=== PATIENT | female | born 1995 | race Caucasian/White ===

== ENCOUNTER 2020-01-06 05:42 | Observation (INO) ==
[2020-01-06] MEDS ORDERED: Ondansetron 4 MG/2 ML VIAL IVP ONE ×2 (06:11→12:30)
[2020-01-06] MEDS ORDERED: 0.9 % Sodium Chloride 1,000 ML IVC ONE (06:11)
[2020-01-06] MEDS ORDERED: *HR* FentaNYL (PF) 100 MCG/2 ML VIAL IVP ONE ×2 (06:17→07:52)
[2020-01-06] MEDS ORDERED: Isovue-370 500 ML BOTTLE IVP ONE (06:18)
[2020-01-06 06:34] LABS: Bilirubin,Urine Negative (Negative); Blood,Urine Trace (Negative); Clarity,Urine Clear (Clear); Color,Urine Yellow (Yellow); Glucose,Urine (UA) Normal (Normal); Ketones,Urine Negative (Negative); Leukocyte Esterase,Urine Negative (Negative); Nitrite,Urine Negative (Negative); Protein,Urine Negative (Neg-Trace); Specific Gravity,Urine 1.024 (1.010-1.025); Urobilinogen,Urine Normal (Normal)
[2020-01-06 06:36] LABS: Bacteria,Urine None Seen per hpf (None-Few); Hyaline Casts,Urine None Seen per lpf (None-Few); Squamous Epithelial Cell,Urine Moderate per lpf (None-Few); WBC,Urine 0-3 per hpf (0-3)
[2020-01-06 06:37] LABS: Immature Granulocytes % 0.5 % (0-4); Mean Corpuscular Volume 58.7 fL (83.0-100.0)
[2020-01-06 06:39] LABS: Basophils % 0.2 %; Immature Platelets 4.7 % (1.1-6.1); Lymphocytes # 1.8 K/mcL (0.6-4.6); Lymphocytes % 12.3 %; Mean Corpuscular HGB Conc 24.6 g/dL (31.6-35.5); Mean Corpuscular Hemoglobin 14.4 pg (28.0-33.3); Monocytes # 1.1 K/mcL (0.0-1.3); Monocytes % 7.2 %; Neutrophils # 11.5 K/mcL (1.6-8.9); Platelet Count 306 K/mcL (140-400); Red Blood Count 4.09 M/mcL (3.82-4.97); Red Cell Distribution Width 22.7 % (11.5-14.5); Segmented Neutrophils % 78.8 %; White Blood Count 14.6 K/mcL (4.3-11.1)
[2020-01-06 06:41] LABS: Eosinophils # 0.2 K/mcL (0.0-0.6)
[2020-01-06 06:44] LABS: Hemoglobin 5.9 g/dL (11.5-15.4)
[2020-01-06 07:00] LABS: Alanine Aminotransferase 15 Units/L (7-52); Albumin 4.2 g/dL (3.5-5.7); Albumin/Globulin Ratio 1.4 (1.1-2.2); Alkaline Phosphatase 59 Units/L (34-104); Aspartate Amino Transferase 20 Units/L (13-39); BUN/Creatinine Ratio 12 (6-26); Bilirubin,Direct 0.1 mg/dL (0.0-0.2); Bilirubin,Indirect 0.4 mg/dL (0.0-1.0); Bilirubin,Total 0.5 mg/dL (0.3-1.0); Blood Urea Nitrogen 7 mg/dL (6-20); Carbon Dioxide 21 mEq/L (23-29); Chloride 106 mEq/L (98-107); Globulin 2.9 g/dL (2.4-3.5); Glucose 102 mg/dL (70-105); Lipase 28 Units/L (11-82); Osmolality,Calculated 280 (280-300); Potassium 3.3 mEq/L (3.5-5.1); Sodium 136 mEq/L (136-145); Total Protein 7.1 g/dL (6.4-8.9); eGFR For African Americans > 60 (> 60); eGFR For Non-African Americans > 60 (> 60)
[2020-01-06 07:12] LABS: Platelet Estimate Normal (Normal)
[2020-01-06 07:13] LABS: Anisocytosis 1+ (Not Present); Hypochromasia Present (Not Present)
[2020-01-06 07:27] LABS: Hematocrit 22.6 % (35.3-44.9); Immature Platelets 4.9 % (1.1-6.1); Mean Corpuscular HGB Conc 24.8 g/dL (31.6-35.5); Mean Corpuscular Hemoglobin 14.5 pg (28.0-33.3); Mean Corpuscular Volume 58.7 fL (83.0-100.0); Platelet Count 294 K/mcL (140-400); Red Blood Count 3.85 M/mcL (3.82-4.97); Red Cell Distribution Width 22.5 % (11.5-14.5); White Blood Count 14.2 K/mcL (4.3-11.1)
[2020-01-06] MEDS ORDERED: Piperacillin/Tazobactam 3.375 GM in 0.9 % Sodium Chloride Mini Bag 100 ML IVPB ONE (07:42)
[2020-01-06 07:44] LABS: Hemoglobin 5.6 g/dL (11.5-15.4)
[2020-01-06] MEDS ORDERED: 0.9 % Sodium Chloride 1,000 ML IVC SCH (08:15)
[2020-01-06] MEDS ORDERED: *HR* FentaNYL (PF) 100 MCG/2 ML VIAL ONE (08:19)
[2020-01-06] MEDS ORDERED: *HR* HYDROMORPHONE 2 MG/ML VIAL ONE (08:19)
[2020-01-06] MEDS ORDERED: *HR* Propofol 200 MG/20 ML VIAL IVP ONE (08:19)
[2020-01-06] MEDS ORDERED: *HR* Midazolam HCl 2 MG/2 ML VIAL ONE (08:19)
[2020-01-06] MEDS ORDERED: Ondansetron 4 MG/2 ML VIAL ONE (08:20)
[2020-01-06] MEDS ORDERED: Lidocaine -MPF 2% 2 ML VIAL ONE ×2 (08:20→10:04)
[2020-01-06] MEDS ORDERED: *HR* Rocuronium Bromide 50 MG/5 ML VIAL ONE (08:20)
[2020-01-06] MEDS ORDERED: Dexamethasone 4 MG/ML VIAL ONE (08:20)
[2020-01-06] MEDS ORDERED: *HR* Succinylcholine 200 MG/10 ML VIAL IVP ONE (08:20)
[2020-01-06] MEDS ORDERED: 0.9 % Sodium Chloride 250 ML IVC SCH (09:00)
[2020-01-06] MEDS ORDERED: Albumin Human 5% 25.0 GM/500 ML IV.SOLN ONE (09:33)
[2020-01-06] MEDS ORDERED: Acetaminophen IV 1,000 MG/100 ML INFUS..BTL ONE (09:33)
[2020-01-06] MEDS ORDERED: Famotidine 20 MG/2 ML VIAL ONE (09:34)
[2020-01-06] MEDS ORDERED: *HR* FentaNYL (PF) 100 MCG/2 ML VIAL IVP PRN (09:37)
[2020-01-06] MEDS ORDERED: Ketorolac 30 MG/ML VIAL ONE (12:27)
[2020-01-06] MEDS ORDERED: *HR* Promethazine 25 MG/ML VIAL IVP PRN (12:30)
[2020-01-06] MEDS ORDERED: *HR* HYDROmorphone PF 0.5 MG/0.5 ML SYRINGE IVP PRN (12:30)
[2020-01-06] MEDS ORDERED: *HR* OxyCODONE Immed Rel 5 MG TABLET PO PRN (12:30)
[2020-01-06] MEDS ORDERED: traZODone 50 MG TABLET PO PRN (13:14)
[2020-01-06] MEDS ORDERED: Piperacillin/Tazobactam 3.375 GM in 0.9 % Sodium Chloride Mini Bag 100 ML IVPB SCH (16:00)
[2020-01-06] MEDS: Piperacillin/Tazobactam 3.375 GM in 0.9 % Sodium Chloride Mini Bag 100 ML IVPB SCH (16:41)
[2020-01-06] MEDS: *HR* OxyCODONE/APAP 5/325 TABLET PO PRN ×2 (16:44→21:11)
[2020-01-06] MEDS: Ondansetron 4 MG/2 ML VIAL IVP PRN (16:44)
[2020-01-06] MEDS: Ketorolac 15 MG/ML VIAL IVP SCH ×2 (17:04→23:02)
[2020-01-07] MEDS: *HR* OxyCODONE/APAP 5/325 TABLET PO PRN ×3 (04:34→13:01)
[2020-01-07] MEDS: Ketorolac 15 MG/ML VIAL IVP SCH ×2 (06:38→12:00)
[2020-01-07 06:51] VITALS: BP 123/74
[2020-01-07] MEDS: Piperacillin/Tazobactam 3.375 GM in 0.9 % Sodium Chloride Mini Bag 100 ML IVPB SCH ×2 (07:44)
[2020-01-07] MEDS: Ondansetron 4 MG/2 ML VIAL IVP PRN (08:57)
[2020-01-07] MEDS ORDERED: FLUoxetine HCl 10 MG CAPSULE PO SCH (09:00)
[2020-01-07] MEDS ORDERED: Venlafaxine XR (24 HR) 150 MG CAP.ER.24H PO SCH (09:00)
[2020-01-07 12:59] LABS: Red Cell Distribution Width 24.6 % (11.5-14.5)
[2020-01-07 13:01] LABS: % Iron Saturation 3 % (15-50); Hematocrit 25.8 % (35.3-44.9); Hemoglobin 6.5 g/dL (11.5-15.4); Immature Platelets 5.5 % (1.1-6.1); Iron 15 mcg/dL (50-170); Mean Corpuscular HGB Conc 25.2 g/dL (31.6-35.5); Mean Corpuscular Hemoglobin 15.7 pg (28.0-33.3); Mean Corpuscular Volume 62.5 fL (83.0-100.0); Platelet Count 321 K/mcL (140-400); Red Blood Count 4.13 M/mcL (3.82-4.97); Transferrin 418 mg/dL (203-362); White Blood Count 11.9 K/mcL (4.3-11.1)
== END 2020-01-07 13:07 | disposition home or self-care (01) ==
LOC: 3ANU 05:42 → EMEROOARM 05:42 → 3ANU 09:05
PROVIDERS: ADMIT Surgery; ATTEND Surgery

== ENCOUNTER → 2021-02-14 16:05 | Observation (INO) ==
[2021-02-14 14:29] LABS: Bacteria,Urine Few per hpf (None-Few); Bilirubin,Urine Negative (Negative); Blood,Urine Negative (Negative); Calcium Oxalate Crystals,Urine Present per hpf; Clarity,Urine Turbid (Clear); Color,Urine Yellow (Yellow); Glucose,Urine (UA) Normal (Normal); Ketones,Urine Negative (Negative); Leukocyte Esterase,Urine Trace (Negative); Mucus,Urine Few per lpf (None-Few); Nitrite,Urine Negative (Negative); Protein,Urine Trace mg/dL (Neg-Trace); RBC,Urine 0-3 per hpf (0-3); Specific Gravity,Urine 1.015 (1.010-1.025); Squamous Epithelial Cell,Urine Moderate per hpf (None-Few); Urobilinogen,Urine Normal (Normal); WBC,Urine 0-3 per hpf (0-3)
[2021-02-14 16:08] LABS: Basophils % 0.2 %; Eosinophils # 0.2 K/mcL (0.0-0.6); Eosinophils % 1.7 %; Hematocrit 33.6 % (35.3-44.9); Hemoglobin 10.6 g/dL (11.5-15.4); Immature Granulocytes % 0.7 % (0-4); Lymphocytes % 22.7 %; Mean Corpuscular HGB Conc 31.5 g/dL (31.6-35.5); Mean Corpuscular Hemoglobin 28.9 pg (28.0-33.3); Mean Corpuscular Volume 91.6 fL (83.0-100.0); Mean Platelet Volume 10.4 fL (9.4-12.4); Monocytes # 0.5 K/mcL (0.0-1.3); Monocytes % 6.2 %; Platelet Count 160 K/mcL (140-400); Red Blood Count 3.67 M/mcL (3.82-4.97); Red Cell Distribution Width 12.7 % (11.5-14.5); Segmented Neutrophils % 68.5 %; White Blood Count 8.7 K/mcL (4.3-11.1)
[2021-02-14 16:29] LABS: % Iron Saturation 16 % (15-50); Calcium 8.2 mg/dL (8.6-10.3); Iron 78 mcg/dL (50-170); Transferrin 346 mg/dL (203-362)
[2021-02-14 16:47] LABS: Ferritin < 8 ng/mL (10-120)
[2021-02-14 16:58] LABS: Folate > 22.3 ng/mL (3.0-16.0); Vitamin B12 213 pg/mL (250-1100); Vitamin D 25 Hydroxy 30 ng/mL (30-80)
== END | disposition home or self-care (01) ==
LOC: 1NENULAB
PROVIDERS: ADMIT Registered Nurse; ATTEND Registered Nurse

== ENCOUNTER 2021-04-08 07:06 | Inpatient (IN) ==
[~2021-04-08 07:06] MED LIST: *HR* FentaNYL (PF) 100 MCG/2 ML VIAL ONE; *HR* Midazolam HCl 2 MG/2 ML VIAL ONE; *HR* Morphine Sulfate/PF 10 MG/10 ML AMPUL ONE; *HR* Phenylephrine 10 MG/ML VIAL ONE; Acetaminophen IV 1,000 MG/100 ML BAG IVPB ONE; Ondansetron 4 MG/2 ML VIAL ONE
[2021-04-08] MEDS ORDERED: Famotidine 20 MG/2 ML VIAL IVP PRN (07:27)
[2021-04-08] MEDS ORDERED: Metoclopramide 10 MG/2 ML VIAL IVP PRN ×2 (07:27→13:39)
[2021-04-08] MEDS ORDERED: Naloxone 0.4 MG/ML INJ IVP PRN ×3 (07:27→13:39)
[2021-04-08] MEDS ORDERED: CeFAZolin 2,000MG/50ML DUPLEX 2,000 MG/50 ML BAG IVPB ONE (07:29)
[2021-04-08] MEDS ORDERED: Ringers Solution, Lactated 1,000 ML IVC SCH (07:30)
[2021-04-08 08:19] LABS: Basophils % 0.5 %; Eosinophils # 0.1 K/mcL (0.0-0.6); Hematocrit 38.1 % (35.3-44.9); Immature Granulocytes % 0.5 % (0-4); Immature Platelets 7.3 % (1.1-6.1); Lymphocytes # 1.8 K/mcL (0.6-4.6); Lymphocytes % 21.5 %; Mean Corpuscular HGB Conc 31.5 g/dL (31.6-35.5); Mean Corpuscular Hemoglobin 27.5 pg (28.0-33.3); Mean Corpuscular Volume 87.2 fL (83.0-100.0); Mean Platelet Volume 12.3 fL (9.4-12.4); Monocytes # 0.6 K/mcL (0.0-1.3); Monocytes % 7.3 %; Neutrophils # 5.7 K/mcL (1.6-8.9); Platelet Count 162 K/mcL (140-400); Red Blood Count 4.37 M/mcL (3.82-4.97); Red Cell Distribution Width 13.4 % (11.5-14.5); Segmented Neutrophils % 69.2 %; White Blood Count 8.2 K/mcL (4.3-11.1)
[2021-04-08 08:20] LABS: Amphetamine Screen,Urine Negative ng/mL (Cutoff=1000); Barbiturate Screen,Urine Negative ng/mL (Cutoff=200); Benzodiazepines Screen,Urine Negative ng/mL (Cutoff=200); Cannabinoid Screen,Urine Negative ng/mL (Cutoff = 50); Cocaine Screen,Urine Negative ng/mL (Cutoff= 300); Opiate Screen,Urine Negative ng/mL (Cutoff=300); Phencyclidine Screen,Urine Negative ng/mL (Cutoff=25)
[2021-04-08 08:40] LABS: Platelet Estimate Normal (Normal)
[2021-04-08] MEDS ORDERED: Oxytocin 20 units/ LR 1000 mL 20 UNIT/1,000 ML BAG IVC ONE ×2 (09:23→13:19)
[2021-04-08] MEDS ORDERED: Metoclopramide 10 MG/2 ML VIAL ONE (09:31)
[2021-04-08] MEDS ORDERED: Famotidine 20 MG/2 ML VIAL ONE (09:31)
[2021-04-08] MEDS ORDERED: Ondansetron 4 MG/2 ML VIAL IVP PRN ×2 (10:32→13:39)
[2021-04-08] MEDS ORDERED: Promethazine 6.25 MG in Water for inj. (sterile) 20 ML IVPB PRN (10:32)
[2021-04-08] MEDS ORDERED: *HR* Meperidine 25 MG/ML SYRINGE IVP PRN (10:32)
[2021-04-08] MEDS ORDERED: *HR* FentaNYL (PF) 100 MCG/2 ML VIAL IVP PRN (10:32)
[2021-04-08] MEDS ORDERED: 0.9 % Sodium Chloride 1,000 ML IVC SCH (13:39)
[2021-04-08] MEDS: Ibuprofen 600 MG TABLET PO SCH ×2 (14:33→20:43)
[2021-04-08] MEDS: Oxytocin 20 units/ LR 1000 mL 20 UNIT/1,000 ML BAG IVC SCH ×2 (14:36→20:43)
[2021-04-08] MEDS: Acetaminophen 325 MG TABLET PO SCH ×2 (16:43→23:46)
[2021-04-08] MEDS: *HR* OxyCODONE Immed Rel 5 MG TABLET PO PRN ×2 (18:14→23:46)
[2021-04-08] MEDS ORDERED: Lanolin 7 G OINT...G. TP PRN (20:25)
[2021-04-08] MEDS: Simethicone 80 MG TAB.CHEW PO PRN (20:43)
[2021-04-09 04:56] LABS: Basophils % 0.3 %; Eosinophils # 0.2 K/mcL (0.0-0.6); Eosinophils % 1.8 %; Hematocrit 29.8 % (35.3-44.9); Hemoglobin 9.3 g/dL (11.5-15.4); Immature Granulocytes % 0.3 % (0-4); Lymphocytes # 2.1 K/mcL (0.6-4.6); Lymphocytes % 22.2 %; Mean Corpuscular HGB Conc 31.2 g/dL (31.6-35.5); Mean Corpuscular Hemoglobin 27.6 pg (28.0-33.3); Mean Corpuscular Volume 88.4 fL (83.0-100.0); Mean Platelet Volume 10.9 fL (9.4-12.4); Monocytes # 0.6 K/mcL (0.0-1.3); Monocytes % 6.1 %; Neutrophils # 6.7 K/mcL (1.6-8.9); Platelet Count 162 K/mcL (140-400); Red Blood Count 3.37 M/mcL (3.82-4.97); Red Cell Distribution Width 13.6 % (11.5-14.5); Segmented Neutrophils % 69.3 %; White Blood Count 9.6 K/mcL (4.3-11.1)
[2021-04-09] MEDS: Ibuprofen 600 MG TABLET PO SCH ×3 (04:57→22:42)
[2021-04-09] MEDS: *HR* OxyCODONE Immed Rel 5 MG TABLET PO PRN ×2 (04:57→10:33)
[2021-04-09] MEDS: Prenatal Vit/FA 1 EACH TABLET PO SCH (07:56)
[2021-04-09] MEDS: Simethicone 80 MG TAB.CHEW PO PRN ×2 (07:56→19:54)
[2021-04-09] MEDS: Acetaminophen 325 MG TABLET PO SCH ×2 (07:56→19:53)
[2021-04-09] MEDS ORDERED: NON-FORMULARY MEDICATION 1 EACH EACH (Prenat 115/Iron Fum/Folic/Dss [Prenatal 19 Tablet] 1 PO SCH (09:00)
[2021-04-10] MEDS: *HR* OxyCODONE Immed Rel 5 MG TABLET PO PRN ×2 (04:05→12:29)
[2021-04-10] MEDS: Acetaminophen 325 MG TABLET PO SCH ×3 (04:05→20:03)
[2021-04-10] MEDS: Ibuprofen 600 MG TABLET PO SCH ×3 (07:57→23:36)
[2021-04-10] MEDS: Prenatal Vit/FA 1 EACH TABLET PO SCH (07:57)
[2021-04-10] MEDS: Simethicone 80 MG TAB.CHEW PO PRN ×2 (07:57→23:36)
[2021-04-10 10:35] LABS: Basophils % 0.1 %; Eosinophils # 0.2 K/mcL (0.0-0.6); Eosinophils % 2.6 %; Hematocrit 27.8 % (35.3-44.9); Hemoglobin 8.9 g/dL (11.5-15.4); Immature Granulocytes % 0.9 % (0-4); Lymphocytes # 1.4 K/mcL (0.6-4.6); Lymphocytes % 20.8 %; Mean Corpuscular Hemoglobin 28.3 pg (28.0-33.3); Mean Corpuscular Volume 88.5 fL (83.0-100.0); Mean Platelet Volume 11.3 fL (9.4-12.4); Monocytes # 0.5 K/mcL (0.0-1.3); Monocytes % 6.8 %; Neutrophils # 4.8 K/mcL (1.6-8.9); Platelet Count 152 K/mcL (140-400); Red Blood Count 3.14 M/mcL (3.82-4.97); Red Cell Distribution Width 13.7 % (11.5-14.5); Segmented Neutrophils % 68.8 %; White Blood Count 6.9 K/mcL (4.3-11.1)
[2021-04-10 10:52] LABS: Alanine Aminotransferase 22 Units/L (7-52); Aspartate Amino Transferase 34 Units/L (13-39); BUN/Creatinine Ratio 13 (6-26); Blood Urea Nitrogen 5 mg/dL (6-20); Lactate Dehydrogenase 191 Units/L (140-271); Uric Acid 3.3 mg/dL (2.3-7.6); eGFR For African Americans > 60 (> 60); eGFR For Non-African Americans > 60 (> 60)
[2021-04-11] MEDS: Acetaminophen 325 MG TABLET PO SCH ×2 (03:29→09:31)
[2021-04-11] MEDS: Prenatal Vit/FA 1 EACH TABLET PO SCH (07:32)
[2021-04-11] MEDS: *HR* OxyCODONE Immed Rel 5 MG TABLET PO PRN ×2 (07:33→11:27)
[2021-04-11] MEDS: Ibuprofen 600 MG TABLET PO SCH ×2 (07:33→13:26)
[2021-04-11 07:45] VITALS: O2SAT 98
[2021-04-11] MEDS: Simethicone 80 MG TAB.CHEW PO PRN (09:31)
[2021-04-11 11:39] VITALS: PULSE 79; TEMP 98
[2021-04-11 13:38] VITALS: BP 133/95
== END 2021-04-11 15:00 | disposition home or self-care (01) | DRG 540 ==
LOC: 1NENULAB 07:06 → 1NENUOBS 13:13
PROVIDERS: ADMIT Obstetrics & Gynecology; ATTEND Obstetrics & Gynecology